=== PATIENT | male | born 1980 | race Caucasian/White ===

== ENCOUNTER 2022-09-30 09:17 | Emergency (ER) | payer OTHER, SELFPAY ==
[2022-09-30 09:25] VITALS: BP 124/88; PULSE 57; RESP 16; TEMP 36.8; O2SAT 97; BMI 24.4
--- NOTE | 2022-09-30 10:50 | ED.NURSE ---
Left before being seen by .
== END 2022-09-30 10:49 | disposition left against medical advice (07) ==
DX: S89.92XA Unspecified injury of left lower leg, initial encounter (principal); S60.413A Abrasion of left middle finger, initial encounter; S60.415A Abrasion of left ring finger, initial encounter; W19.XXXA Unspecified fall, initial encounter
CPT/HCPCS: 99282; 99283

== ENCOUNTER 2022-12-05 11:31 | Emergency (ER) | payer OTHER, SELFPAY ==
[2022-12-05 11:36] VITALS: BP 129/90; RESP 18; TEMP 37.2; O2SAT 97; BMI 23.7
--- NOTE | 2022-12-05 13:03 | ED.NURSE ---
Patient moved to modified ED room 5 for safety. Camera is on for 1:1 video monitoring.
--- NOTE | 2022-12-05 13:06 | ED.PSYCH ---
HPI - Psych General Chief Complaint: Psychiatric Problem/Disorder Stated Complaint: Mental health Time Seen by Provider: 12/05/22 11:49 History of Present Illness HPI Narrative: 42-year-old man presenting to the emergency department with it concern of increasing feelings of suicidality. No specific plan. Symptoms became more intense today. Probably has an underlying history of anxiety since was young. Has had a number of stressors lately. Sleep has been poor lately particular last night. Fourteen months ago he overdosed on propranolol which is taken for an essential tremor, ended up with flying from here to [place] where he was in a coma for a period time. He describes this as a rather spontaneous action with no prior self-harm behavior or intent coming on the heels of his leaving him. Now he is recognizing some of those feelings again. That was 14 months ago that he overdosed. Does have a 10-year-old and a 13-year-old. Sharing custody 50 50 with his ex-. Has been in a relationship over the last 4 months and is the girlfriend apparently became overwhelmed with number of his stressors and left the relationship. Stressors include financial as has been incurring medical bills. Was in a new position without insurance, now that he does have insurance. He does however have a rather high deductible. 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 A few months ago started to have seizures. This workup has been expensive. And now he is also finding himself on the brink of eviction. The seizures apparently are thought to be related to the propranolol overdose possibly. Has absence type seizures. Last 1 was about a month ago. This complicates matters is he had to rely on his girlfriend for transport. Does have a brother who lives I believe a new [place] and parents who live more locally but are not particularly supportive. During his recovery after the overdose he was living with his parents but that did not go well emotionally. Is wondering if the Keppra might be contributing to some of his emotional stress. He is no longer taking Prozac. This was may be helpful but he did not particularly appreciate the blunted affect. Medications currently include blood pressure medication I believe lisinopril and chlorthalidone and also still takes propranolol again for essential tremor and Keppra as noted. Did have a history of seeing a therapist but sounds like it has been quite some time. He ended that relationship partly from feeling shamed; feels like maybe it was not a good fit. Does not remember who prescribed the fluoxetine. Current primary sounds to be Karishma Stephanie. He later emphasizes how his reason for living is his daughters. He would never want to do anything to hurt them. Related Data Home Medications Medication Instructions Recorded Confirmed chlorthalidone 25 mg tablet mg 09/30/22 09/30/22 fluoxetine 20 mg capsule mg 09/30/22 09/30/22 lisinopril 20 mg tablet mg 09/30/22 09/30/22 propranolol 60 mg capsule,24 mg PO 09/30/22 09/30/22 hr,extended release Allergies Allergy/AdvReac Type Severity Reaction Status Date / Time ampicillin Allergy Mild Verified 09/30/22 09:28 Review of Systems Status of ROS: Reports: 6 or more systems reviewed and unremarkable except as noted in History and below [facility] Social History Smoking Status: Never smoker Non-prescribed substance use: denies use Exam Narrative: Exam Narrative: He is pleasant. Eyes are injected. Is well-built/muscled. Skin is warm and dry without evidence of self-harm. He is breathing easily. Heart is with a regular rate and rhythm no murmur rub or gallop identified. Cranial nerves 2-12 to be intact. Moving all extremities. Mood is sad, affect appropriate. Able to laugh wryly at aspects of conversation. Is carefully casually groomed. Speech isn't pressured or slurred. Const: Vital Signs, click to edit/add: Vital Signs - 24 hr 12/05/22 11:36 Temperature 98.9 F Respiratory Rate 18 Blood Pressure [Ri ght Upper Arm] 129/90 H Pulse Oximetry 97 Oxygen Delivery Me thod Room Air Documenting provider has reviewed patient's vital signs: yes Course Vital Signs Vital signs: Initial Vital Signs Temperature 98.9 F 12/05/22 11:36 Temperature Source Temporal Artery Scan 12/05/22 11:36 Respiratory Rate 18 12/05/22 11:36 Blood Pressure 129/90 H 12/05/22 11:36 Blood Pressure Mean 103 12/05/22 11:36 Blood Pressure Position Sitting 12/05/22 11:36 Pulse Oximetry 97 12/05/22 11:36 Oxygen Delivery Method 12/05/22 11:36 Vital Signs Temperature 98.9 F 12/05/22 11:36 Respiratory Rate 18 12/05/22 11:36 Blood Pressure 129/90 H 12/05/22 11:36 Pulse Oximetry 97 12/05/22 11:36 Oxygen Delivery Method 12/05/22 11:36 Temperature 98.9 F 12/05/22 11:36 Respiratory Rate 18 12/05/22 11:36 Blood Pressure 129/90 H 12/05/22 11:36 Pulse Oximetry 97 12/05/22 11:36 Oxygen Delivery Method 12/05/22 11:36 MDM - Psych MDM Narrative Medical decision making narrative: Needs some light at the end of the tunnel physically financially; a plan. I would like to consult with [facility], in part for 2nd opinion but also to possibly a arrange urgent outpatient cares. Discussed with Markus CHAMBERS proof machine operator before and after interview. He is also comfortable with outpatient management. Has managed to arrange a virtual appointment tomorrow and then I believe the next day of therapy and psychiatry appointment. They discussed coping mechanisms. Antwan feels safe being discharged; he shows me a picture of his girls noting that this is whom he has living for. Admittedly it is a little harder this week as this is his week without the girls. We discussed need for a plan especially related to finances. He did receive some calls and managed to obtain some financial assistance for his rent during this time in the emergency department. Appeared more hopeful prior to departure. Discharge Plan Discharge Clinical Impression: Other social stressor, Suicidal ideation Patient Disposition: Home w/ Parent or Adult Condition: Improved Instructions: Suicide Prevention (ED) Additional Instructions: Please follow-up with appointments tomorrow. I believe you have at least one virtual tomorrow and others in-person coming up. Sorry you will have to arrange transportation for that. I believe Markus's paperwork will also include other potential financial resources. Try to get quality and regular sleep. Try to get in at least 30 minutes of heart pumping exercise in daily... But you know this. :) Keep those lines of communication open with patient financial services and other financial assistance. Again, draw up a spread sheet or ledger of some sort so see can see/make a clear plan. [facility] a [facility] place to [facility] about now. Of course plan something fun to do with your girls for this weekend/next week. Call your dad just because...he's your dad? Anything he'd enjoy doing with you? I did speak with the neurologist who did not think that the Keppra was likely related to how you're feeling; more likely to cause agitation. Confirmed state law noting that you can drive when 3 months seizure-free with or without medications. If after talking with therapist/psychiatrist, friends, family you do still feel unsafe, please return to the emergency department. Prescriptions: No Action lisinopril 20 mg tablet propranolol 60 mg capsule,extended release 24 hr PO chlorthalidone 25 mg tablet fluoxetine 20 mg capsule Follow Up/Referrals: Karishma Hadley MD [Primary Care Provider] - Stand Alone Forms: Patient Feed Info Instructions
--- NOTE | 2022-12-05 13:30 | ED.NURSE ---
Patient participating with DEC.
--- NOTE | 2022-12-05 16:41 | ED.NURSE ---
Patient received safety plan from OCT. Follow up appointments were highlighted. Patient reports understanding and will return to ED with any worsening symptoms or thoughts of self harm.
== END 2022-12-05 16:43 | disposition home or self-care (01) ==
PROVIDERS: Emergency Provider Family Medicine; PCP Family Medicine
DX: R45.851 Suicidal ideations (principal); F43.9 Reaction to severe stress, unspecified
CPT/HCPCS: 99283; 99284

== ENCOUNTER 2023-10-27 11:40 | Outpatient (CLI) | payer MEDICAID, SELFPAY ==
--- NOTE | 2023-10-27 13:04 | W.ANESCHARGE ---
Anesthesia Charges Start Date/Time Anesthesia Start Date: 10/27/23 Anesthesia Start Time: 12:20 Stop Date/Time Anesthesia Stop Date: 10/27/23 Anesthesia Stop Time: 13:01
--- NOTE | 2023-10-27 13:24 | W.ANESCHARGE ---
Anesthesia Charges Start Date/Time Anesthesia Start Date: 10/27/23 Anesthesia Start Time: 12:20 Stop Date/Time Anesthesia Stop Date: 10/27/23 Anesthesia Stop Time: 13:01
== END 2023-10-27 11:41 | disposition home or self-care (01) ==
LOC: OP CLINIC 11:41
PROVIDERS: PCP Family Medicine; Visit Provider Internal Medicine Gastroenterology
DX: R93.3 Abnormal findings on diagnostic imaging of other parts of digestive tract (principal); R19.7 Diarrhea, unspecified; K31.89 Other diseases of stomach and duodenum
CPT/HCPCS: 00813; 43239; 45380; 88305; J2704

== ENCOUNTER 2023-10-29 08:42 | Emergency (ER) | payer MEDICAID, SELFPAY ==
[2023-10-29] VITALS (25 sets, daily range): BP systolic 101–125; BP diastolic 72–89; PULSE 50–66; RESP 16; TEMP 35.6; O2SAT 94–100; BMI 25.1
--- NOTE | 2023-10-29 09:00 | ED_ITS ---
HPI - General Adult General Time Seen by Provider: 09:00 Date Seen: 10/29/23 Chief complaint: Nausea/Vomiting Stated complaint: abdominal pain / vomiting Time Seen by Provider: 10/29/23 08:58 Source: patient and RN notes reviewed Mode of arrival: ambulatory Limitations: no limitations History of Present Illness HPI narrative: This 43-year-old male is coming in with epigastric abdominal pain, nausea vomiting with underlying chronic diarrhea after EGD and colonoscopy with Dr. Wilkes here this past Friday. Patient has been having abdominal symptoms for a couple months, more diarrhea. There was antibiotics given for stool infection at 1 point, does not sound like it was C difficile. States he has had multiple tests done, colonoscopy will an EGD was subsequently done. Nausea and vomiting have not been a large part of this. Yesterday morning he started having nausea and vomiting, no blood in it. He has been having some GI issues for months, was diagnosed with pancreatic insufficiency and has been taking Creon. He is not having fevers but notes he gets sweats and then will feel cold, this is really increased since yesterday. He is still noting diarrhea, no blood in it. He has had diminished oral intake particularly since yesterday. His scopes were just done 2 days ago here at [place]. Prior to his scopes, may have had some sense of these cold sweats without fever but very occasionally. Did have biopsies done but results still obviously pending for pathology. Related Data Home Medications Medication Instructions Recorded Confirmed chlorthalidone 25 mg tablet 25 mg 09/30/22 09/30/22 fluoxetine 20 mg capsule 20 mg PO DAILY 09/30/22 10/29/23 lisinopril 20 mg tablet 20 mg PO DAILY 09/30/22 10/29/23 propranolol 60 mg capsule,24 60 mg PO DAILY 09/30/22 10/29/23 hr,extended release Previous Rx's Medication Instructions Recorded omeprazole 40 mg capsule,delayed 40 mg PO DAILY #14 caps 10/29/23 release ondansetron 4 mg disintegrating 4 mg PO Q6H PRN nausea and 10/29/23 tablet vomiting #20 tabs Allergies Allergy/AdvReac Type Severity Reaction Status Date / Time ampicillin Allergy Mild Verified 10/29/23 08:48 Review of Systems Status of ROS: Reports: 10 or more systems reviewed and unremarkable except as noted in History and below PFSH PFSH Social History Smoking Status: Never smoker How often do you have a drink containing alcohol: never AUDIT-C Alcohol total score: 0 Non-prescribed substance use: denies use service: No Exam Const: Vital Signs, click to edit/add: Vital Signs - 24 hr 10/29/23 08:49 10/29/23 08:53 10/29/23 08:54 Temperature 96.1 F L Pulse Rate 64 62 Pulse Rate [Pulse Oximeter] 62 Respiratory Rate 16 Blood Pressure 113/85 Blood Pressure [Ri ght Upper Arm] 122/89 Pulse Oximetry 97 98 98 Oxygen Delivery Me thod Room Air 10/29/23 08:55 10/29/23 09:00 10/29/23 09:02 Temperature Pulse Rate 65 59 L 66 Pulse Rate [Pulse Oximeter] Respiratory Rate 16 Blood Pressure 110/80 Blood Pressure [Ri ght Upper Arm] Pulse Oximetry 97 97 98 Oxygen Delivery Me thod 10/29/23 09:15 10/29/23 09:30 10/29/23 09:32 Temperature Pulse Rate 60 60 Pulse Rate [Pulse Oximeter] Respiratory Rate 16 Blood Pressure 101/74 Blood Pressure [Ri ght Upper Arm] Pulse Oximetry 96 98 Oxygen Delivery Me thod 10/29/23 09:33 10/29/23 09:44 10/29/23 09:45 Temperature Pulse Rate 60 56 L Pulse Rate [Pulse Oximeter] Respiratory Rate Blood Pressure Blood Pressure [Ri ght Upper Arm] Pulse Oximetry 98 100 100 Oxygen Delivery Me thod 10/29/23 10:00 10/29/23 10:02 10/29/23 10:15 Temperature Pulse Rate 56 L 56 L 51 L Pulse Rate [Pulse Oximeter] Respiratory Rate Blood Pressure 113/75 Blood Pressure [Ri ght Upper Arm] Pulse Oximetry 97 97 96 Oxygen Delivery Me thod 10/29/23 10:30 10/29/23 10:32 10/29/23 10:45 Temperature Pulse Rate 51 L 51 L 50 L Pulse Rate [Pulse Oximeter] Respiratory Rate Blood Pressure 114/72 Blood Pressure [Ri ght Upper Arm] Pulse Oximetry 94 96 94 Oxygen Delivery Me thod 10/29/23 11:00 10/29/23 11:02 Temperature Pulse Rate 53 L 64 Pulse Rate [Pulse Oximeter] Respiratory Rate 16 Blood Pressure 113/76 Blood Pressure [Ri ght Upper Arm] Pulse Oximetry 96 98 Oxygen Delivery Me thod This 43-year-old male is very pleasant, good eye contact but appears pale. He has beads of sweat on his forehead. Sclera clear, extraocular muscles intact, able speak in complete sentences. Neck supple, do not note any jugular venous distension. Able to sit up easily, lungs are clear, good aeration, no tachypnea, no wheezing or crackles. CV regular rate and rhythm, no murmur, normal S1-S2, no S3-S4. Abdomen is soft, does not have distension, bowel sounds are normal, no organomegaly. Maybe some mild epigastric pain with out any rebound or guarding at this time. No lower extremity edema, moving all extremities, neurologic exam nonfocal. Documenting provider has reviewed patient's vital signs: yes Course Course ED Course: Will place an IV, give him IV fluids, given 4 mg IV Zofran and see how he does. Abdominal exam is not suggestive of definite perforation at this time but if he did have biopsies as he is suggesting with his scopes, he is at risk for this. We discussed imaging, will proceed with CT abdomen pelvis. It is possible that he has a new GI illness, we have been seeing certainly viral illnesses. He does agree to do the viral triple swab looking particularly at COVID and influenza, these can manifest with GI symptoms. Will get full complement of labs. Will see if he has increasing pain while here or fever. May need to speak with his clinic with Dr. Wilkes at some point if possible. Reevaluation(s) Time of Reevaluation #1: 11:13 Reevaluation #1: Reviewed with patient and his parents the CT findings. He remembers the liver lesion being seen on the recent CT report but not the left kidney lesion. We reviewed that these could be compared outpatient, consider renal ultrasound for further characterization of the left kidney outpatient. This is not the causative issue for him now. We did review the duodenal inflammation that is circumferential, could be an early enteritis. He is still getting IV fluids. Dr. Wilkes has been paged and will call me back when he is done with his current procedure. Time of Reevaluation #2: 11:37 Reevaluation #2: Did review with patient my conversation with Dr. Wilkes. Questions answered. Consultations Consultation #1: Dr. Wilkes did call back. Reviewed CT findings. Would peer that the lymphadenopathy was not commented or resolved on our CT. He did state that he did do quite a few biopsies of the duodenum, could be the possible inflammation on the CT scan. He was attempting to rule out celiac. It is possible that this certainly could be a new viral etiology. He agrees with conservative management outpatient. Will review this with patient and prepare for discharge. Time: 11:27 Vital Signs Vital signs: Initial Vital Signs Temperature 96.1 F L 10/29/23 08:49 Temperature Source Temporal Artery Scan 10/29/23 08:49 Pulse Rate 62 10/29/23 08:49 Pulse Rhythm Regular 10/29/23 08:49 Pulse Strength 3+ Normal 10/29/23 08:49 Respiratory Rate 16 10/29/23 08:49 Blood Pressure 122/89 10/29/23 08:49 Blood Pressure Mean 100 10/29/23 08:49 Blood Pressure Position Supine 10/29/23 08:49 Pulse Oximetry 97 10/29/23 08:49 Oxygen Delivery Method Room Air 10/29/23 08:49 Vital Signs Temperature 96.1 F L 10/29/23 08:49 Pulse Rate 62 10/29/23 08:49 Respiratory Rate 16 10/29/23 08:49 Blood Pressure 122/89 10/29/23 08:49 Pulse Oximetry 97 10/29/23 08:49 Oxygen Delivery Method Room Air 10/29/23 08:49 Temperature 96.1 F L 10/29/23 08:49 Pulse Rate 64 10/29/23 11:02 Respiratory Rate 16 10/29/23 11:02 Blood Pressure 113/76 10/29/23 11:02 Pulse Oximetry 98 10/29/23 11:02 Oxygen Delivery Method Room Air 10/29/23 08:49 Medications Administered Medications: Discontinued Medications Generic Name Dose Route Start Last Admin Trade Name Freq PRN Reason Stop Dose Admin Sodium Chloride 1,000 mls @ 500 mls/hr 10/29/23 09:22 10/29/23 09:29 0.9 % Sodium Chloride 1000 Ml IV 10/29/23 11:21 500 mls/hr .Q2H MARYANN Administration Ondansetron HCl 4 mg 10/29/23 09:22 10/29/23 09:29 Ondansetron 2 Mg/Ml Inj IVP 10/29/23 09:23 4 mg ONCE ONE Administration Medical Decision Making Lab Data Lab results reviewed: Yes I reviewed the patient's lab results Labs: Lab Results 10/29/23 Range/Units 09:20 WBC 8.36 (4.50-11.00) K/uL RBC 4.99 (4.30-5.90) m/uL Hgb 14.7 (13.5-17.5) gm/dL Hct 42.2 (37.0-53.0) % MCV 85 (80-100) fL MCH 30 (26-34) pg MCHC 35 (32-36) gm/dL RDW Coeff of Steve 12.3 (11.5-15.5) % Plt Count 368 (140-440) K/uL Neut % (Auto) 65.0 (42.0-72.0) % Lymph % (Auto) 24.2 (20-44) % [place] % (Auto) 9.4 (0.0-11.0) % Eos % (Auto) 0.7 (0.0-7.0) % Baso % (Auto) 0.6 (0.0-3.0) % Neut # (Auto) 5.43 (1.7-7.0) K/uL Lymph # (Auto) 2.02 (0.90-2.90) K/uL [place] # (Auto) 0.80 (0.00-0.90) K/UL Eos # (Auto) 0.06 (0.00-0.50) K/uL Baso # (Auto) 0.05 (0.00-0.30) K/uL Abs Immat Gran (auto) 0.01 (0.00-0.30) K/uL Imm/Tot Granulo (auto) 0.1 % Sodium 132 L (135-149) mmol/L Potassium 3.3 L (3.6-5.1) mmol/L Chloride 96 (96-114) mmol/L Carbon Dioxide 24 (20-32) mmol/L Anion Gap 12 (7-15) mEq/L BUN 16 (5-24) mg/dL Creatinine 0.8 (0.5-1.5) mg/dL Estimated Creat Clear 130.68 Estimated GFR 113 ml/min Glucose 104 (60-115) mg/dL Lactate 1.3 (0.5-1.9) mmol/L Calcium 9.8 (8.4-10.6) mg/dL Total Bilirubin 0.7 (0.1-1.5) mg/dL Direct Bilirubin 0.0 (0.0-0.5) mg/dL AST 28 (12-35) U/L ALT 36 (4-50) U/L Alkaline Phosphatase 58 (40-150) U/L C-Reactive Protein 0.5 (0.5-1.0) mg/dL Total Protein 7.9 (6.0-8.3) g/dL Albumin 4.8 (3.3-5.0) g/dL Amylase 93 H (18-89) U/L Lipase 198 (23-300) U/L SARS-CoV-2 (PCR) Negative SARS-CoV-2 (Negative) Influenza Type A (PCR) Negative PCR FLU A (Negative) Influenza Type B (PCR) Negative PCR FLU B (Negative) RSV (PCR) Negative PCR RSV (Negative) Imaging Data CT scan - abdomen: Attestation: I have reviewed the pertinent imaging results. Radiologist's impression: Facility:?[facility] Patient ID:?[id number] Site Patient ID:?[id number]. Site :?[id number] Study:?CT Abdomen/Pelvis W/91CC [id number]/20/2023 9:51:55 AM Ordering Physician:?Malini Chung Final Report: INDICATION: Status post colonoscopy and endoscopy with increased nausea and vomiting. TECHNIQUE: Axial images were obtained from the diaphragm to the pubic symphysis. Reformats were obtained in the coronal and sagittal plane. IV Contrast: 91 cc Isovue 370 Oral Contrast: None COMPARISON: None. FINDINGS: Lower chest: Unremarkable. Liver: 2.5 centimeter hypodense lesion within segment 5 of the liver. There is some nodular enhancement around the margin of this lesion. Gallbladder and bile ducts: Moderate gallbladder distention without gallbladder wall thickening or pericholecystic inflammation. Normal diameter common duct. Spleen: Unremarkable. Normal in size without mass. Pancreas: Unremarkable. No mass or inflammation. Adrenal glands: Unremarkable. No nodules. Kidneys: Symmetric renal enhancement with mildly hyperdense lesion extending exophytically from the left kidney measuring 1.7 centimeters. Vasculature: Unremarkable. GI tract: The stomach is unremarkable. No dilated loops of large or small intestine. Borderline duodenal fold thickness. Char hepatis lymph node measuring 13 millimeters. Pelvis: Unremarkable. Bones: Unremarkable for age. IMPRESSION: 1. Borderline duodenal full-thickness which can be seen in an enteritis. 2. Liver lesion measuring 2.5 centimeters. This is considered incompletely characterized although the nodular peripheral enhancement would be suggestive of a benign hepatic hemangioma. 3. Mildly hyperdense lesion extending exophytically from the left kidney measuring 1.7 centimeters. Differential diagnosis includes hyperdense cyst or solid lesion. Outpatient renal ultrasound may be helpful in this differentiation. Please note that all CT scans at this facility use dose modulation, iterative reconstruction, and/or weight-based dosing when appropriate to reduce radiation dose to as low as reasonably achievable. Dictated by Thanh Fontaine MD @ 10/29/2023 10:47:02 AM (Electronic Signature) Critical Care Time Critical Care Time Critical Care Time: No Discharge Plan Discharge Clinical Impression: Enteritis Patient Disposition: Home, Self-Care Condition: Stable Instructions: Enteritis (ED) Additional Instructions: Recommend frequent small sips of clear liquids today. Stand clear liquids in tell you are feeling better, can advance diet to soft foods after tomorrow if you are feeling better. If your a on able to take in oral liquids despite outlined treatment, do need to be re-evaluated. This either could be a new viral gastroenteritis versus inflammation of the duodenum from all the biopsies. Either way, conservative management is indicated at this time. Will put you on omeprazole for 2 weeks and zofran as needed for nausea. Activity Level: Activity as Tolerated Discharge Diet: Clear Liquid Prescriptions: New omeprazole 40 mg capsule,delayed release(DR/EC) 40 mg PO DAILY Qty: 14 0RF ondansetron 4 mg tablet,disintegrating 4 mg PO Q6H PRN (Reason: nausea and vomiting) Qty: 20 0RF No Action lisinopril 20 mg tablet 20 mg PO DAILY propranolol 60 mg capsule,extended release 24 hr 60 mg PO DAILY chlorthalidone 25 mg tablet 25 mg fluoxetine 20 mg capsule 20 mg PO DAILY Follow Up/Referrals: Karishma Hadley MD [Primary Care Provider] - Stand Alone Forms: [facility] Info Instructions
--- NOTE | 2023-10-29 09:07 | CT_ITS ---
Patient: FAZAL VÁZQUEZ Facility:?[facility] Patient ID:?[id number] Site Patient [id number]:?[id number]. Site :?[id number] Study:?CT-Abdomen/Pelvis W/91CC [id number]/20/2023 9:51:55 AM Ordering Physician:?Malini Chung Final Report: INDICATION: Status post colonoscopy and endoscopy with increased nausea and vomiting. TECHNIQUE: Axial images were obtained from the diaphragm to the pubic symphysis. Reformats were obtained in the coronal and sagittal plane. IV Contrast: 91 cc Isovue 370 Oral Contrast: None COMPARISON: None. FINDINGS: Lower chest: Unremarkable. Liver: 2.5 centimeter hypodense lesion within segment 5 of the liver. There is some nodular enhancement around the margin of this lesion. Gallbladder and bile ducts: Moderate gallbladder distention without gallbladder wall thickening or pericholecystic inflammation. Normal diameter common duct. Spleen: Unremarkable. Normal in size without mass. Pancreas: Unremarkable. No mass or inflammation. Adrenal glands: Unremarkable. No nodules. Kidneys: Symmetric renal enhancement with mildly hyperdense lesion extending exophytically from the left kidney measuring 1.7 centimeters. Vasculature: Unremarkable. GI tract: The stomach is unremarkable. No dilated loops of large or small intestine. Borderline duodenal fold thickness. Char hepatis lymph node measuring 13 millimeters. Pelvis: Unremarkable. Bones: Unremarkable for age. IMPRESSION: 1. Borderline duodenal full-thickness which can be seen in an enteritis. 2. Liver lesion measuring 2.5 centimeters. This is considered incompletely characterized although the nodular peripheral enhancement would be suggestive of a benign hepatic hemangioma. 3. Mildly hyperdense lesion extending exophytically from the left kidney measuring 1.7 centimeters. Differential diagnosis includes hyperdense cyst or solid lesion. Outpatient renal ultrasound may be helpful in this differentiation. Please note that all CT scans at this facility use dose modulation, iterative reconstruction, and/or weight-based dosing when appropriate to reduce radiation dose to as low as reasonably achievable. Dictated by Thanh Fontaine MD @ 10/29/2023 10:47:02 AM Signed by:?Thanh Fontaine MD @10/29/2023 10:47:02 AM (Electronic Signature)
[2023-10-29 09:25] LABS: Lactate* 1.3 mmol/L (0.5-1.9)
[2023-10-29 09:26] LABS: Basophils Absolute Auto 0.05 K/uL (0.00-0.30); Basophils Percent Auto 0.6 % (0.0-3.0); Eosinophils Absolute Auto 0.06 K/uL (0.00-0.50); Eosinophils Percent Auto 0.7 % (0.0-7.0); Hematocrit 42.2 % (37.0-53.0); Hemoglobin* 14.7 gm/dL (13.5-17.5); Immature Granulocytes Abs Auto 0.01 K/uL (0.00-0.30); Immature Granulocytes Pct Auto 0.1 %; Lymphocytes Absolute Auto 2.02 K/uL (0.90-2.90); Lymphocytes Percent Auto 24.2 % (20-44); Mean Corpuscular HGB Conc 35 gm/dL (32-36); Mean Corpuscular Hemoglobin 30 pg (26-34); Mean Corpuscular Volume 85 fL (80-100); Monocytes Percent Auto 9.4 % (0.0-11.0); Neutrophils Absolute Auto 5.43 K/uL (1.7-7.0); Platelet Count* 368 K/uL (140-440); RDW Coefficient of Variation % 12.3 % (11.5-15.5); Red Blood Count 4.99 m/uL (4.30-5.90); White Blood Count* 8.36 K/uL (4.50-11.00)
[2023-10-29 09:28] LABS: Slide Review Reflex No
[2023-10-29] MEDS: 0.9 % SODIUM CHLORIDE 1000 ml 1,000 ML 500 ML IV (09:29)
[2023-10-29] MEDS: ONDANSETRON 2 MG/ML inj 4 MG IVP (09:29)
[2023-10-29 09:41] LABS: Albumin* 4.8 g/dL (3.3-5.0); Chloride* 96 mmol/L (96-114)
[2023-10-29 09:42] LABS: Potassium* 3.3 mmol/L (3.6-5.1); Sodium* 132 mmol/L (135-149)
[2023-10-29 09:44] LABS: Alkaline Phosphatase* 58 U/L (40-150); Amylase* 93 U/L (18-89); Anion Gap 12 mEq/L (7-15); Aspartate Amino Transferase* 28 U/L (12-35); Bilirubin Total* 0.7 mg/dL (0.1-1.5); Blood Urea Nitrogen* 16 mg/dL (5-24); Carbon Dioxide* 24 mmol/L (20-32); Creatinine* 0.8 mg/dL (0.5-1.5); Est. Creatinine Clearance* 130.68; Estimated Glomerular Filt Rate 113 ml/min; Total Protein* 7.9 g/dL (6.0-8.3)
[2023-10-29 09:45] LABS: Alanine Aminotransferase* 36 U/L (4-50); Calcium* 9.8 mg/dL (8.4-10.6); Glucose* 104 mg/dL (60-115); Lipase* 198 U/L (23-300)
[2023-10-29 09:47] LABS: C Reactive Protein* 0.5 mg/dL (0.5-1.0)
[2023-10-29 10:07] LABS: PCR FLU A Negative PCR FLU A (Negative); PCR FLU B Negative PCR FLU B (Negative); PCR RSV Negative PCR RSV (Negative); SARS PCR* Negative SARS-CoV-2 (Negative)
--- NOTE | 2023-10-29 11:24 | PC.NURSE ---
Dr. Wilkes called back and speaking to Dr. Keenan now
== END 2023-10-29 12:03 | disposition home or self-care (01) ==
PROVIDERS: Emergency Provider Family Medicine; PCP Family Medicine
DX: K52.9 Noninfective gastroenteritis and colitis, unspecified (principal)
CPT/HCPCS: 36415; 74177; 80053; 82150; 82248; 83605; 83690; 85025; 86140; 87631; 94761; 95992; 96374; 99284; 99285; J2405; J7030; Q9967

== ENCOUNTER 2024-02-03 09:37 | Emergency (ER) | payer MEDICAID, SELFPAY ==
[2024-02-03 09:42] VITALS: BP 127/94; PULSE 67; RESP 16; TEMP 35.7; O2SAT 96; BMI 25.5
--- NOTE | 2024-02-03 10:03 | ED_ITS ---
HPI - General Adult General Chief complaint: Abdominal Pain Stated complaint: Abdominal pain Time Seen by Provider: 02/03/24 09:42 History of Present Illness HPI narrative: presents to ed with concerns of upper abd pain. this became painful upon arising at 0630. did admit that he had cramping yesterday. has seen dr fernandes for some gi issues. pancreatic insufficiencies and is on meds to help. has had diarrhea this am. 43-year-old man presenting to the emergency department with concern of abdominal pain. Is experiencing a deep ache in the upper left abdomen/low chest as he demonstrates. Feels better to put his hand on it but can not rule clearly reproduce the pain it appears. Does have a history of recurrent/chronic diarrhea. Has been evaluated with upper and lower scopes and treated by GI. Has been initiated on Creon and cholestyramine. Apparently with pancreatic insufficiency. Unknown gallbladder function. Woke this morning then with more intense pain and subsequently had diarrhea. Has not had a fever. No melena or hematochezia described. Few days ago/last week did have bout of vomiting. No sensation of palpitations. No shortness of breath described. No cough or cold symptoms. No fever. Related Data Home Medications Medication Instructions Recorded Confirmed chlorthalidone 25 mg tablet 25 mg 09/30/22 09/30/22 fluoxetine 20 mg capsule 20 mg PO DAILY 09/30/22 10/29/23 lisinopril 20 mg tablet 20 mg PO DAILY 09/30/22 10/29/23 propranolol 60 mg capsule,24 60 mg PO DAILY 09/30/22 10/29/23 hr,extended release Previous Rx's Medication Instructions Recorded omeprazole 40 mg capsule,delayed 40 mg PO DAILY #14 caps 10/29/23 release ondansetron 4 mg disintegrating 4 mg PO Q6H PRN nausea and 10/29/23 tablet vomiting #20 tabs Allergies Allergy/AdvReac Type Severity Reaction Status Date / Time ampicillin Allergy Mild Verified 10/29/23 08:48 Review of Systems Status of ROS: Reports: 6 or more systems reviewed and unremarkable except as noted in History and below [facility] Social History Smoking Status: Never smoker Do you use any of these nicotine containing products: None Second hand tobacco smoke exposure: No How often do you have a drink containing alcohol: never How often do you have six or more drinks on one occasion: Never AUDIT-C Alcohol total score: 0 Non-prescribed substance use: denies use service: No Exam Narrative: Exam Narrative: Pleasant. Does seem uncomfortable. Right hand at his left low chest. Breathing easily. Brow furrowed in discomfort. Appears mildly anxious. Lungs appear to be clear. Heart in regular rate and rhythm without murmur or gallop. Abdomen with normoactive bowel sounds is soft. Absent peritoneal signs. He is tender underneath the left mid ribs. Not tender really in the epigastrium more in the right upper quadrant. No masses appreciated. Extremities are without edema and well-perfused. Const: Vital Signs, click to edit/add: Vital Signs - 24 hr 02/03/24 09:42 Temperature 96.3 F L Pulse Rate [Pulse Oximeter] 67 Respiratory Rate 16 Blood Pressure [Ri ght Upper Arm] 127/94 H Pulse Oximetry 96 Oxygen Delivery Me thod Room Air Documenting provider has reviewed patient's vital signs: yes Course Vital Signs Vital signs: Initial Vital Signs Temperature 96.3 F L 02/03/24 09:42 Temperature Source Temporal Artery Scan 02/03/24 09:42 Pulse Rate 67 02/03/24 09:42 Pulse Rhythm Regular 02/03/24 09:42 Respiratory Rate 16 02/03/24 09:42 Blood Pressure 127/94 H 02/03/24 09:42 Blood Pressure Mean 105 02/03/24 09:42 Blood Pressure Position Supine 02/03/24 09:42 Pulse Oximetry 96 02/03/24 09:42 Oxygen Delivery Method Room Air 02/03/24 09:42 Vital Signs Temperature 96.3 F L 02/03/24 09:42 Pulse Rate 67 02/03/24 09:42 Respiratory Rate 16 02/03/24 09:42 Blood Pressure 127/94 H 02/03/24 09:42 Pulse Oximetry 96 02/03/24 09:42 Oxygen Delivery Method Room Air 02/03/24 09:42 Temperature 96.3 F L 02/03/24 09:42 Pulse Rate 67 02/03/24 09:42 Respiratory Rate 16 02/03/24 09:42 Blood Pressure 127/94 H 02/03/24 09:42 Pulse Oximetry 96 02/03/24 09:42 Oxygen Delivery Method Room Air 02/03/24 09:42 Medications Administered Medications: Discontinued Medications Generic Name Dose Route Start Last Admin Trade Name Syeda PRN Reason Stop Dose Admin Sodium Chloride 1,000 mls @ 1,000 mls/hr 02/03/24 10:22 02/03/24 12:14 0.9 % Sodium Chloride 1000 Ml IV 02/03/24 11:21 Infused .Q1H ONE Infusion Ketorolac Tromethamine 30 mg 02/03/24 10:22 02/03/24 10:55 Ketorolac 30 Mg/Ml Inj IVP 02/03/24 10:23 30 mg ONCE ONE Administration Lorazepam 0.5 mg 02/03/24 10:22 02/03/24 10:56 Lorazepam 2 Mg/Ml Inj IVP 02/03/24 10:23 0.5 mg ONCE ONE Administration Ondansetron HCl 4 mg 02/03/24 10:22 02/03/24 10:56 Ondansetron 2 Mg/Ml Inj IVP 02/03/24 10:23 4 mg ONCE ONE Administration Medical Decision Making MDM Narrative Medical decision making narrative: Would try to help with IV fluids antiemetic as is mildly nauseated. Also ketorolac. I think little lorazepam might be helpful as well. Appears to be having IBS flare. Gastritis? GERD? intestinal colic? Considering prior clinical history and evaluations, will treat symptoms and look for red flags to generate further investigation for potential cholecystitis, ischemic cardiovascular event, vascular disruption, pancreatitis. Labs are reassuring. On reassessment has been sleeping and is noted to be considerably improved. I don't think further imaging will be necessary. See patient discharge plan for further discussion. Medical Records Medical records reviewed: Yes I reviewed the patient's medical records Lab Data Lab results reviewed: Yes I reviewed the patient's lab results Labs: Lab Results 02/03/24 02/03/24 Range/Units 10:23 10:40 WBC 6.77 (4.50-11.00) K/uL RBC 4.90 (4.30-5.90) m/uL Hgb 14.6 (13.5-17.5) gm/dL Hct 42.7 (37.0-53.0) % MCV 87 (80-100) fL MCH 30 (26-34) pg MCHC 34 (32-36) gm/dL RDW Coeff of Steve 12.1 (11.5-15.5) % Plt Count 309 (140-440) K/uL Neut % (Auto) 65.8 (42.0-72.0) % Lymph % (Auto) 23.3 (20-44) % [place] % (Auto) 8.9 (0.0-11.0) % Eos % (Auto) 1.5 (0.0-7.0) % Baso % (Auto) 0.4 (0.0-3.0) % Neut # (Auto) 4.45 (1.7-7.0) K/uL Lymph # (Auto) 1.58 (0.90-2.90) K/uL [place] # (Auto) 0.60 (0.00-0.90) K/UL Eos # (Auto) 0.10 (0.00-0.50) K/uL Baso # (Auto) 0.03 (0.00-0.30) K/uL Abs Immat Gran (auto) 0.01 (0.00-0.30) K/uL Imm/Tot Granulo (auto) 0.1 % Sodium 138 (135-149) mmol/L Potassium 3.8 (3.6-5.1) mmol/L Chloride 107 (96-114) mmol/L Carbon Dioxide 21 (20-32) mmol/L Anion Gap 10 (7-15) mEq/L BUN 16 (5-24) mg/dL Creatinine 0.8 (0.5-1.5) mg/dL Estimated Creat Clear 130.68 Estimated GFR 113 ml/min Glucose 105 (60-115) mg/dL Lactate 1.3 (0.5-1.9) mmol/L Calcium 9.6 (8.4-10.6) mg/dL Total Bilirubin 0.6 (0.1-1.5) mg/dL Direct Bilirubin 0.2 (0.0-0.5) mg/dL AST 30 (12-35) U/L ALT 44 (4-50) U/L Alkaline Phosphatase 71 (40-150) U/L Troponin I < 0.01 L (0.01-0.04) ng/mL C-Reactive Protein < 0.5 L (0.5-1.0) mg/dL Total Protein 7.8 (6.0-8.3) g/dL Albumin 4.5 (3.3-5.0) g/dL Lipase 88 (23-300) U/L SARS-CoV-2 (PCR) Negative SARS-CoV-2 (Negative) Influenza Type A (PCR) Negative PCR FLU A (Negative) Influenza Type B (PCR) Negative PCR FLU B (Negative) POC Troponin I 0.00 L (0.01-0.04) ng/ml ECG Data Attestation: I personally reviewed and interpreted this ECG as follows: (Normal sinus rhythm rate of 64) Discharge Plan Discharge Clinical Impression: Abdominal pain, Irritable bowel syndrome (IBS) Patient Disposition: Home w/ Parent or Adult Condition: Improved Additional Instructions: Focus on hydration. Slow advance of diet over the next 36 hours or so. Diluted juices, soup broth, rice, crackers, toast. Return for intractable vomiting or diarrhea, marked increase in uncontrolled abdominal pain. Please check in with Dr. Fernandes. Happy you are feeling better. Prescriptions: No Action lisinopril 20 mg tablet 20 mg PO DAILY propranolol 60 mg capsule,extended release 24 hr 60 mg PO DAILY chlorthalidone 25 mg tablet 25 mg fluoxetine 20 mg capsule 20 mg PO DAILY omeprazole 40 mg capsule,delayed release(DR/EC) 40 mg PO DAILY Qty: 14 0RF ondansetron 4 mg tablet,disintegrating 4 mg PO Q6H PRN (Reason: nausea and vomiting) Qty: 20 0RF Follow Up/Referrals: Karishma Hadley MD [Primary Care Provider] - Stand Alone Forms: [facility] Info Instructions
[2024-02-03 10:45] LABS: Lactate* 1.3 mmol/L (0.5-1.9)
[2024-02-03 10:47] LABS: Basophils Absolute Auto 0.03 K/uL (0.00-0.30); Basophils Percent Auto 0.4 % (0.0-3.0); Eosinophils Percent Auto 1.5 % (0.0-7.0); Hematocrit 42.7 % (37.0-53.0); Hemoglobin* 14.6 gm/dL (13.5-17.5); Immature Granulocytes Abs Auto 0.01 K/uL (0.00-0.30); Immature Granulocytes Pct Auto 0.1 %; Lymphocytes Absolute Auto 1.58 K/uL (0.90-2.90); Lymphocytes Percent Auto 23.3 % (20-44); Mean Corpuscular HGB Conc 34 gm/dL (32-36); Mean Corpuscular Hemoglobin 30 pg (26-34); Mean Corpuscular Volume 87 fL (80-100); Monocytes Percent Auto 8.9 % (0.0-11.0); Neutrophils Absolute Auto 4.45 K/uL (1.7-7.0); Neutrophils Percent Auto 65.8 % (42.0-72.0); Platelet Count* 309 K/uL (140-440); RDW Coefficient of Variation % 12.1 % (11.5-15.5); White Blood Count* 6.77 K/uL (4.50-11.00)
[2024-02-03 10:51] LABS: Slide Review Reflex No
[2024-02-03] MEDS: KETOROLAC 30 MG/ML inj IVP (10:55)
[2024-02-03] MEDS: 0.9 % SODIUM CHLORIDE 1000 ml 1,000 ML IV (10:55)
[2024-02-03] MEDS: ONDANSETRON 2 MG/ML inj 4 MG IVP (10:56)
[2024-02-03] MEDS: LORazepam 2 MG/ML inj 0.5 MG IVP (10:56)
[2024-02-03 11:00] LABS: Albumin* 4.5 g/dL (3.3-5.0); Chloride* 107 mmol/L (96-114); Sodium* 138 mmol/L (135-149)
[2024-02-03 11:01] LABS: Potassium* 3.8 mmol/L (3.6-5.1)
[2024-02-03 11:03] LABS: Creatinine* 0.8 mg/dL (0.5-1.5); Est. Creatinine Clearance* 130.68; Estimated Glomerular Filt Rate 113 ml/min
[2024-02-03 11:04] LABS: Alanine Aminotransferase* 44 U/L (4-50); Alkaline Phosphatase* 71 U/L (40-150); Anion Gap 10 mEq/L (7-15); Aspartate Amino Transferase* 30 U/L (12-35); Bilirubin Direct* 0.2 mg/dL (0.0-0.5); Bilirubin Total* 0.6 mg/dL (0.1-1.5); Blood Urea Nitrogen* 16 mg/dL (5-24); Calcium* 9.6 mg/dL (8.4-10.6); Carbon Dioxide* 21 mmol/L (20-32); Glucose* 105 mg/dL (60-115); Lipase* 88 U/L (23-300); Total Protein* 7.8 g/dL (6.0-8.3)
[2024-02-03 11:16] LABS: C Reactive Protein* < 0.5 mg/dL (0.5-1.0); Troponin I* < 0.01 ng/mL (0.01-0.04)
[2024-02-03 11:53] LABS: PCR FLU A Negative PCR FLU A (Negative); PCR FLU B Negative PCR FLU B (Negative); SARS PCR* Negative SARS-CoV-2 (Negative)
== END 2024-02-03 12:28 | disposition home or self-care (01) ==
PROVIDERS: Emergency Provider Family Medicine; PCP Family Medicine
DX: K58.9 Irritable bowel syndrome, unspecified (principal)
CPT/HCPCS: 36415; 80048; 80076; 83605; 83690; 84484; 85025; 86140; 87631; 93005; 96374; 96375; 99283; 99284; J1885; J2060; J2405; J7030